=== PATIENT | male | born 1955 | race Hispanic/Latino ===

== ENCOUNTER 2017-04-25 01:24 | Emergency (ER) | payer MEDICARE ==
--- NOTE | 2017-04-25 01:46 | Emergency Department Report ---
ED CPR HPI - General Chief Complaint: Cardiac Arrest/CPR Stated Complaint: CARDIAC ARREST Time Seen by Provider: 04/25/17 01:43 Source: EMS Mode of arrival: Stretcher Limitations: Other - History of Present Illness Initial Comments: This is a 62-year-old male presents to the emergency department by EMS from home and cardiac arrest. The patient allegedly has a history of CHF, coronary artery disease with 2 previous ME, hypertension and COPD. EMS has been working on the patient doing ACLS, as much as possible, for the past 30 minutes prior to presentation here. The patient was in PEA the entire time. He received a total of 3 rounds of epinephrine, continuous chest compressions and was receiving bag valve ventilation. They were unable to intubate. - Related Data Home Medications Medication Instructions Recorded Confirmed Last Taken ALPRAZolam [Xanax TAB] 1 mg PO TID PRN 01/13/15 01/13/15 Unknown AtorvaSTATin [Lipitor] 80 mg PO QHS 01/13/15 01/13/15 Unknown Carvedilol [Coreg] 12.5 mg PO BID 01/13/15 01/13/15 Unknown Clopidogrel [Plavix] 75 mg PO QDAY 01/13/15 01/13/15 Unknown Insulin Aspart Prot/Aspart(Nf) 0 units SQ BID 01/13/15 01/13/15 Unknown [NovoLOG Mix 70/30 VIAL] Insulin Glargine,Hum.rec.anlog 68 units SQ QHS 01/13/15 01/13/15 Unknown [Lantus Solostar] Lisinopril [Zestril TAB] 20 mg PO QDAY 01/13/15 01/13/15 Unknown Mirtazapine [Remeron] 15 mg PO DAILY 01/13/15 01/13/15 Unknown amLODIPine [Norvasc] 5 mg PO DAILY 01/13/15 01/13/15 Unknown metFORMIN [Glucophage] 1,000 mg PO BID 01/13/15 01/13/15 Unknown Previous Rx's Medication Instructions Recorded Last Taken Type Furosemide [Lasix] 20 mg PO QDAY #30 tablet 01/13/15 Unknown Rx Allergies Allergy/AdvReac Type Severity Reaction Status Date / Time No Known Allergies Allergy Verified 06/20/13 21:23 ED Review of Systems ROS: Stated complaint: CARDIAC ARREST Other details as noted in HPI Comment: Unobtainable due to pts medical conditions ED Past Medical Hx - Past Medical History Hx Hypertension: Yes Hx Heart Attack/AMI: Yes (x3) Hx Diabetes: Yes Hx GERD: Yes (ACID REFLUX) Hx Kidney Stones: Yes Hx COPD: Yes - Surgical History Additional Surgical History: 4 cardiac stents, cardiac defibrilator, neck surgery, kidney stone removed. - Social History Smoking Status: Never Smoker - Medications Home Medications: Home Medications Medication Instructions Recorded Confirmed Last Taken Type ALPRAZolam [Xanax TAB] 1 mg PO TID PRN 01/13/15 01/13/15 Unknown History AtorvaSTATin [Lipitor] 80 mg PO QHS 01/13/15 01/13/15 Unknown History Carvedilol [Coreg] 12.5 mg PO BID 01/13/15 01/13/15 Unknown History Clopidogrel [Plavix] 75 mg PO QDAY 01/13/15 01/13/15 Unknown History Furosemide [Lasix] 20 mg PO QDAY #30 tablet 01/13/15 Unknown Rx Insulin Aspart Prot/Aspart(Nf) 0 units SQ BID 01/13/15 01/13/15 Unknown History [NovoLOG Mix 70/30 VIAL] Insulin Glargine,Hum.rec.anlog 68 units SQ QHS 01/13/15 01/13/15 Unknown History [Lantus Solostar] Lisinopril [Zestril TAB] 20 mg PO QDAY 01/13/15 01/13/15 Unknown History Mirtazapine [Remeron] 15 mg PO DAILY 01/13/15 01/13/15 Unknown History amLODIPine [Norvasc] 5 mg PO DAILY 01/13/15 01/13/15 Unknown History metFORMIN [Glucophage] 1,000 mg PO BID 01/13/15 01/13/15 Unknown History ED Physical Exam - General Limitations: Other - Other Other exam information: GENERAL: Patient is ill-appearing and unresponsive. HENT: Normocephalic. Atraumatic. There are some brown gastric secretions seen in the oropharynx. EYES: Pupils are fixed and dilated. NECK: Supple. Trachea is midline. CHEST/LUNGS: No spontaneous breath sounds. HEART/CARDIOVASCULAR: No spontaneous heart sounds. ABDOMEN: Abdomen is soft. Morbidly obese habitus. SKIN: Skin is cool, pale and dry. NEURO: The patient is unresponsive to verbal, tactile or painful stimuli. MUSCULOSKELETAL: There is no obvious deformity. There is no evidence of acute injury. - Intubation Time Out Performed: No Laryngoscope: other (Glydescope) Size: 3 ET Tube Size: 7.5 Tube Secured Depth (cm): 24 Tube Secured Location: lips Tube Placement Confirmation: visualized tube passing t, equal breath sounds bilat, confirmation by capnometr Intubation Complications: none ED Medical Decision Making - Medical Decision Making The patient presents to us pulseless in asystole after the patient had already been getting 30 minutes of CPR by EMS. Patient was placed on the monitor. He was only receiving bag valve ventilation upon arrival so he was quickly intubated by myself. We continued chest compressions as soon as he got into room 20. He received a total of 2 more rounds of epinephrine, one of sodium bicarbonate and one of calcium. Trachea rounds of ACLS protocol, the patient still was pulseless in asystole. At this point I took the ultrasound and looked at the patient's heart and there was absolutely no movement, squeeze or even fibrillation. At that point time of was called. Family eventually came to the hospital and I sat down with them and told them about the patient's expiration. They will be given a chance to come back and see him if they would like to do so. - Differential Diagnosis ME, PE, dysrhythmia Critical Care Time: Yes Critical care time in (mins) excluding proc time.: 15 Critical care attestation.: If time is entered above; I have spent that time in minutes in the direct care of this critically ill patient, excluding procedure time. Critical care time spent on this patient during his initial evaluation, supervision of ACLS protocol, expiration pronouncement and discussion with the patient's family. This does not include time spent doing the intubation procedure. Critical Care Time: 15 minutes ED Disposition Clinical Impression: Cardiac arrest Disposition: [id number]-20 Is pt being admited?: No Referrals: PRIMARY CARE,MD [Primary Care Provider] - 3-5 Days Time of Disposition: 03:33
[2017-04-25] MEDS ORDERED: CALCIUM CHLORIDE IV ONE (14:48)
[2017-04-25] MEDS ORDERED: ADRENALIN ONE (14:48)
[2017-04-25] MEDS ORDERED: SODIUM BICARBONATE IV ONE (14:48)
== END 2017-04-25 05:30 ==
LOC: ED 01:24
DX: I46.9 Cardiac arrest, cause unspecified (principal); I25.2 Old myocardial infarction; E11.9 Type 2 diabetes mellitus without complications; K21.9 Gastro-esophageal reflux disease without esophagitis; J45.909 Unspecified asthma, uncomplicated; I10 Essential (primary) hypertension; Z79.4 Long term (current) use of insulin
CPT/HCPCS: 31500; 92950; 99285; J0171